=== PATIENT | female | born 1990 | race Caucasian/White ===

== ENCOUNTER 2016-08-23 14:05 | Emergency (ER) | payer OTHER ==
--- NOTE | 2016-08-23 14:42 | ED CLINICAL REPORT ---
Clinical Report - Physicians/Mid Levels [facility] [address] [place] [address] 08/23/2016 14:12 Patient: BJ GARSIA Time Seen: 14:20; initial patient contact, initial documentation, patient care assumed. Arrived- By private vehicle. Historian- patient. HISTORY OF PRESENT ILLNESS Chief Complaint: FALL. Location of injuries- abdomen and lower back. The injury occurred today. Occurred at a relative's house. Fell down 5 stairs while walking. The patient complains of mild pain. No blow to the head, neck pain, loss of consciousness or seizure. Not dazed. (, approx 20 weeks , going down the stairs, missed a step, slipped fell backwards onto butt, back and elbows and slid the rest of the way down the stairs, low back and abd started to hurt, no vag dc/bleeding). REVIEW OF SYSTEMS No numbness, chest pain, difficulty breathing, laceration or urinary problems. She has had abdominal pain but no pain on weight bearing. All systems otherwise negative, except as recorded above. PAST HISTORY Negative. SOCIAL HISTORY Never smoker. No alcohol use or drug use. Is an out of state resident. Visiting locally. FAMILY HISTORY No significant family medical history. ADDITIONAL NOTES The nursing notes have been reviewed with agreement regarding the chief complaint, HPI, ROS, PMH and patient medications and allergies. PHYSICAL EXAM Vital Signs: 08/23/2016 14:17 BP: 127/85. HR: 93. RR: 18. O2 saturation: 97%. Temp: 97.6 F. Pain level now: 7/10. Have been reviewed as normal and appear to be correct. Appearance: Alert. Oriented X3. No acute distress. Head: Head non-tender. No swelling of head. Eyes: Pupils equal, round and reactive to light. EOM intact. ENT: No dental injury. Pharynx normal. Neck: Painless ROM. Non-tender. CVS: Heart sounds normal. Pulses normal. Respiratory: Breath sounds normal. Chest nontender. Abdomen: No visible injury. Soft and nontender. Nontender gravid uterus palpable to umbilicus (fht per nurse 154 and strong). Size consistent with dates. Normal heart tones. Back: Back tenderness present. Mild soft-tissue tenderness in the right and left costovertebral angle. ROM normal. : Normal genitalia. Vaginal exam normal. (speculum and bimanual exam, normal, no tenderness, no bleeding, no dc, normal size fundus per dates). Skin: Skin intact. Skin warm and dry. Normal skin color. Normal skin turgor. Extremities: Abnormal inspection. Extremities not atraumatic. Left elbow: small abrasion located in the area of the olecranon. Neurovascular intact distally. No erythema, tenderness, swelling, laceration or ecchymosis. No puncture wound, foreign body or deformity. No joint effusion or limitation in ROM. Pelvis stable. No lower extremity edema. Neuro: Oriented X 3. No motor deficit. No sensory deficit. PROGRESS AND PROCEDURES Patient counseled in person regarding the patient's stable condition, test results and diagnosis. Differential Diagnosis: Other possible considerations: fall, demise, miscarriage, fx, head injury, abd injury, contusions, lac, abrasions. Above considerations are based on history, physical exam and reassessment. Differential diagnosis was discussed with patient. Disposition: Discharged home in good and unchanged condition. Condition: good and stable. CLINICAL IMPRESSION Single superficial abrasion to the left elbow. Myofascial pain syndrome Fall on same level by slipping. INSTRUCTIONS Warnings: GENERAL WARNINGS: Return or contact your physician immediately if your condition worsens or changes unexpectedly, if not improving as expected, or if other problems arise. SPECIFICALLY, return if you develop incontinence of urine (loss of bladder control). vaginal bleeding, abdominal pain worsens, chest pain, trouble breathing. Follow-up: Follow up with your doctor in about three days as needed. Call for an appointment. Summary of care provided to patient. Understanding of the discharge instructions verbalized by patient. (Electronically signed by Noni Bull A.R.N.P. 08/23/2016 14:58)
--- NOTE | 2016-08-23 14:42 | ED NURSING NOTES ---
Clinical Report - Nurses [facility] [address] [place] [address] 08/23/2016 14:12 Patient: BJ GARSIA TRIAGE Triage time 14:10 Aug 23 2016. Acuity: LEVEL 4. Chief Complaint: ABDOMINAL PAIN and (Pain low back, bilat hips and Lower abd pain). SEPSIS SCREEN: Sepsis Screen. Negative (no infection suspected/documented). TELLO COMA SCORE: Tello Coma Scale: 15- eyes open spontaneously (4); best verbal response- oriented x 4 (5); best motor response- obeys commands (6). --14:18 Iveth Bean R.N. 14:17 08/23/16. BP: 127/85 (regular adult cuff) taken on the right arm, while lying. HR: 93. RR: 18. O2 saturation: 97% on room air. Temp: 97.6 F (oral). Pain level now: 11/21. --14:18 Iveth Bean R.N. Weight: 68.9 kg stated. Height/Length: 71 inches Per Patient. BMI: 21.2. --14:10 Iveth Bean R.N. Medications TraMADol HCl ER Oral. Tramadol HCL Oral (Tablet 50 mg) 4 tablet, morning and night. --14:13 Iveth Bean R.N. Aspirin Low Dose Oral (Tablet Chewable 81 mg) 1 tablet, daily. --14:14 Iveth Bean R.N. Tylenol Oral (Tablet 325 mg) 1 tablet, PRN. --14:14 Iveth Bean R.N. Allergies Penicillins. --14:14 Iveth Bean R.N. Arithromycin. --14:15 Iveth Bean R.N. History Arrived by private vehicle. Historian: patient. ( Patient is 20 weeks and fell down 5 steps on low back, she is now having low back, bilat hips and lower abd pain. She says she does feel baby moving). She has had abdominal pain (lower abd). ( 154 BPM FHT). 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 PAST MEDICAL HX: Negative. Currently . In 2nd trimester. SOCIAL HX: Never smoker. No alcohol use or drug use. No recent travel. No infectious disease exposure. No known contact with a sick individual. ABUSE ASSESSMENT: No report of abuse. --14:18 Iveth Bean R.N. Interventions ID band on patient. To treatment room. --14:18 Iveth Bean R.N. PHYSICAL ASSESSMENT Ambulatory to room. GENERAL / NEURO / PSYCH: Alert. Oriented X 4. HEENT: Mucous membranes are pink. RESPIRATORY: Respirations not labored. Breath sounds within normal limits. CVS: Normal sinus rhythm noted. Capillary refill less than 2 seconds. GI / : Abdomen soft and nontender. Bowel sounds within normal limits. ( normal FHT 154 BPM and regular). SKIN: Skin is warm. --14:19 Iveth Bean R.N. NURSING PROGRESS NOTES The plan of care for this patient has been created. Monitoring of patient in place. Patient gowned. Head of bed elevated. Reassurance given. Two patient identifiers checked. Call light placed in reach. Side rails up x 2. Bed placed in lowest position. Brakes of bed on. Patient ready for evaluation- chart flagged and ED physician notified. --14:19 Iveth Bean R.N. DISPOSITION / DISCHARGE Condition at departure: improved. No learning barriers present. Activity restrictions (rest) reviewed. Patient verbalized understanding. Written instructions provided in [place]. The patient was discharged by the nurse practitioner. She was discharged home and accompanied by family. She left the Emergency Department ambulatory and via private vehicle. Family member driving. --14:57 Iveth Bean R.N. 14:56 08/23/16. BP: 114/79 (regular adult cuff) taken on the right arm, while sitting. HR: 90. RR: 16 (regular). O2 saturation: 95% on room air. Temp: 98.3 F (oral). Pain level now: 09/21. --14:57 Iveth Bean R.N. Departure time: 14:57 Aug 23 2016. --14:57 Iveth Bean R.N. Locked/Released at 08/23/2016 14:59 by Iveth Bean R.N.
--- NOTE | 2016-08-23 14:42 | ED ORDER SUMMARY ---
..... Patient: BJ GARSIA OrderSheet [facility] VisitID: [id number] [address] [place] [address] 25y, F Registration Date/Time: 08/23/2016 ORDER SHEET Weight: 68.9 kg (stated) Allergies: Penicillins, Arithromycin GENERAL ORDERS: Heart Tones (14:24 08/23/2016 JSanders R.N. per protocol) (14:24 JSanders R.N.) Pelvic Exam Setup (14:24 08/23/2016 HBivens A.R.N.P.) (14:33 JSanders R.N.) MEDICATION ORDERS: IV FLUIDS: ORDER SHEET NOTES: [Electronically signed by Noni BullR.N.P. (14:58 08/23/2016)] [Electronically signed by Iveth Bean R.N. (14:58 08/23/2016)] [Electronically locked/signed by Iveth Bean R.N. (14:58 08/23/2016)]
--- NOTE | 2016-08-23 14:42 | ED NURSING NOTES ---
Clinical Report - Nurses [facility] [address] [place] [address] 08/23/2016 14:12 Patient: BJ GARSIA TRIAGE Triage time 14:10 Aug 23 2016. Acuity: LEVEL 4. Chief Complaint: ABDOMINAL PAIN and (Pain low back, bilat hips and Lower abd pain). SEPSIS SCREEN: Sepsis Screen. Negative (no infection suspected/documented). TELLO COMA SCORE: Tello Coma Scale: 15- eyes open spontaneously (4); best verbal response- oriented x 4 (5); best motor response- obeys commands (6). --14:18 Iveth Bean R.N. 14:17 08/23/16. BP: 127/85 (regular adult cuff) taken on the right arm, while lying. HR: 93. RR: 18. O2 saturation: 97% on room air. Temp: 97.6 F (oral). Pain level now: 11/21. --14:18 Iveth Bean R.N. Weight: 68.9 kg stated. Height/Length: 71 inches Per Patient. BMI: 21.2. --14:10 Iveth Bean R.N. Medications TraMADol HCl ER Oral. Tramadol HCL Oral (Tablet 50 mg) 4 tablet, morning and night. --14:13 Iveth Bean R.N. Aspirin Low Dose Oral (Tablet Chewable 81 mg) 1 tablet, daily. --14:14 Iveth Bean R.N. Tylenol Oral (Tablet 325 mg) 1 tablet, PRN. --14:14 Iveth Bean R.N. Allergies Penicillins. --14:14 Iveth Bean R.N. Arithromycin. --14:15 Iveth Bean R.N. History Arrived by private vehicle. Historian: patient. ( Patient is 20 weeks and fell down 5 steps on low back, she is now having low back, bilat hips and lower abd pain. She says she does feel baby moving). She has had abdominal pain (lower abd). ( 154 BPM FHT). 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 PAST MEDICAL HX: Negative. Currently . In 2nd trimester. SOCIAL HX: Never smoker. No alcohol use or drug use. No recent travel. No infectious disease exposure. No known contact with a sick individual. ABUSE ASSESSMENT: No report of abuse. --14:18 Iveth Bean R.N. Interventions ID band on patient. To treatment room. --14:18 Iveth Bean R.N. PHYSICAL ASSESSMENT Ambulatory to room. GENERAL / NEURO / PSYCH: Alert. Oriented X 4. HEENT: Mucous membranes are pink. RESPIRATORY: Respirations not labored. Breath sounds within normal limits. CVS: Normal sinus rhythm noted. Capillary refill less than 2 seconds. GI / : Abdomen soft and nontender. Bowel sounds within normal limits. ( normal FHT 154 BPM and regular). SKIN: Skin is warm. --14:19 Iveth Bean R.N. NURSING PROGRESS NOTES The plan of care for this patient has been created. Monitoring of patient in place. Patient gowned. Head of bed elevated. Reassurance given. Two patient identifiers checked. Call light placed in reach. Side rails up x 2. Bed placed in lowest position. Brakes of bed on. Patient ready for evaluation- chart flagged and ED physician notified. --14:19 Iveth Bean R.N. DISPOSITION / DISCHARGE Condition at departure: improved. No learning barriers present. Activity restrictions (rest) reviewed. Patient verbalized understanding. Written instructions provided in [place]ian. The patient was discharged by the nurse practitioner. She was discharged home and accompanied by family. She left the Emergency Department ambulatory and via private vehicle. Family member driving. --14:57 Iveth Bean R.N. 14:56 08/23/16. BP: 114/79 (regular adult cuff) taken on the right arm, while sitting. HR: 90. RR: 16 (regular). O2 saturation: 95% on room air. Temp: 98.3 F (oral). Pain level now: 09/21. --14:57 Iveth Bean R.N. Departure time: 14:57 Aug 23 2016. --14:57 Iveth Bean R.N. Locked/Released at 08/23/2016 14:59 by Iveth Bean R.N.
--- NOTE | 2016-08-23 14:42 | ED ORDER SUMMARY ---
..... Patient: BJ GARSIA OrderSheet [facility] VisitID: [id number] [address] [place] [address] 25y, F Registration Date/Time: 08/23/2016 ORDER SHEET Weight: 68.9 kg (stated) Allergies: Penicillins, Arithromycin GENERAL ORDERS: Heart Tones (14:24 08/23/2016 JSanders R.N. per protocol) (14:24 JSanders R.N.) Pelvic Exam Setup (14:24 08/23/2016 HBivens A.R.N.P.) (14:33 JSanders R.N.) MEDICATION ORDERS: IV FLUIDS: ORDER SHEET NOTES: [Electronically signed by Noni BullR.N.P. (14:58 08/23/2016)] [Electronically signed by Iveth Bean R.N. (14:58 08/23/2016)] [Electronically locked/signed by Iveth Bean R.N. (14:58 08/23/2016)]
--- NOTE | 2016-08-23 14:59 | ED DISCHARGE INSTRUCTIONS ---
Patient: BJ GARSIA General Instructions [facility] VisitID: [id number] [place] [address] 25y, F Registration Date/Time: 08/23/2016 Single superficial abrasion to the left elbow. Myofascial pain syndrome Fall on same level by slipping. INSTRUCTIONS Warnings: GENERAL WARNINGS: Return or contact your physician immediately if your condition worsens or changes unexpectedly, if not improving as expected, or if other problems arise. SPECIFICALLY, return if you develop incontinence of urine (loss of bladder control). vaginal bleeding, abdominal pain worsens, chest pain, trouble breathing. Follow-up: Follow up with your doctor in about three days as needed. Call for an appointment. Summary of care provided to patient. Understanding of the discharge instructions verbalized by patient. ADDITIONAL INFORMATION Mechanical Fall You have had a fall today. It appears that the cause is mechanical. That means that you slipped, tripped or lost your balance. If your fall had been due to fainting or a seizure, further tests would be required. Home Care: Rest today and resume your normal activities when you are feeling back to normal. If you were injured during the fall, follow the advice from your doctor regarding care of your injury. You may use acetaminophen (Tylenol) or ibuprofen (Motrin, Advil) to control pain, unless another pain medicine was prescribed. [NOTE: If you have chronic liver or kidney disease or ever had a stomach ulcer or GI bleeding, talk with your doctor before using these medicines.] Fall Prevention: Was there anything that caused your fall that can be fixed, removed, or replaced? Make your home safe by keeping walkways clear of objects you may trip over. Use non-slip pads under rugs. Do not walk in poorly lit areas. Do not stand on chairs or wobbly ladders. Use caution when reaching overhead or looking upward. This position can cause a loss of balance. Be sure your shoes fit properly, have non-slip bottoms and are in good condition. Be cautious when going up and down curbs, and walking on uneven sidewalks. If your balance is poor, consider using a cane or walker. Stay as active as you can. Balance, flexibility, strength, and endurance all come from exercise. They all play a role in preventing falls. Follow Up with your doctor or as advised by our staff. Get Prompt Medical Attention if any of the following occur: Repeated mechanical falls, or unexplained falls Dizziness, fainting or seizure Severe headache Chest pain or shortness of breath Palpitations (very rapid or very slow or irregular heartbeat) Blood in vomit, stools (black or red color) Weakness of an arm or leg or one side of the face Difficulty with speech or vision Abrasions Abrasions are skin scrapes. Their treatment depends on how large and deep the abrasion is. Home Care: If you were given a bandage, change it once a day. If your bandage sticks to the wound, soak it in warm water until it loosens. Wash the area with soap and water to remove all the cream/ointment. You may do this in a sink, under a tub faucet or shower. Rinse off the soap and pat dry with a clean towel. Reapply cream/ointment according to your doctor's instructions. This will prevent infection and help prevent the bandage from sticking. Cover the wound with a fresh non-stick bandage (Telfa). Repeat steps 1 to 4 daily, or as directed by your doctor. If the bandage becomes wet or dirty, change it as soon as possible. You may use acetaminophen (Tylenol) or ibuprofen (Motrin, Advil) to control pain, unless another pain medicine was prescribed. [ NOTE : If you have chronic liver or kidney disease or ever had a stomach ulcer or GI bleeding, talk with your doctor before using these medicines.] Do not use ibuprofen in children under six months of age. Follow Up with your physician or this facility as directed by our staff. Most skin wounds heal within ten days. However, an infection may occur despite proper treatment. Therefore, look for the early signs of infection listed below. Get Prompt Medical Attention if any of the following occur: Increasing pain in the wound Increasing redness or swelling Pus coming from the wound Fever of 100.4F (38C) or higher, or as directed by your healthcare provider Myofascial Pain Syndrome: Fibrositis Your pain is caused by a state of chronic muscle tension. This condition is called by various names: myofascial pain, fibrositis and trigger point pain. This can also be due to mechanical stress (such as working at a computer terminal for long periods; or work that requires repetitive motions of the arms or hands) or emotional stress (such as problems on the job or in your personal life). Sometimes there is no obvious cause. The pain can occur in the area of the muscle spasm or at a site distant to it. For example, spasm of a neck muscle can cause headache. Spasm of the muscle near the shoulder blade can cause pain shooting down the arm. Home Care: Try to identify the factors that may be causing your problem and change them: If you feel thatemotional stressis a cause of your pain, learn methods to deal more effectively with the stress in your life. These may include regular exercise, muscle relaxation techniques, meditation or simply taking time out for yourself. Consult your doctor or go to a local bookstore and review the many books and tapes available on the subject of stress reduction. If you feel that physical stress is a cause for your pain, try to modify any poor work habits. You may use acetaminophen (Tylenol) or ibuprofen (Motrin, Advil) to control pain, unless another medicine was prescribed. [NOTE: If you have chronic liver or kidney disease or ever had a stomach ulcer or GI bleeding, talk with your doctor before using these medicines.] The use of heat to the muscle (hot compress or heating pad) will be helpful to reduce muscle spasm. Some persons get relief with ice packs. Apply an ice pack (crushed or cubed ice in a plastic bag, wrapped in a towel) for 20 minutes at a time as needed. Use the method that feels best to you. Massaging the trigger point and stretching out the muscleare an important parts of prevention and treatment. Trigger point massage can be done by first applying heat to the area to warm and prepare the muscle. Have someone apply steady thumb pressure directly on the knot in the muscle (the most tender point) for 30 seconds. Release the pressure, then massage the surrounding muscle. Repeat the process, applying more pressure to the trigger point each time. Do this up to the limit of pain. With each treatment, the trigger point should become less tender and the pain should decrease. You can apply local pressure to trigger points in the back by lying on the floor with a tennis ball under the trigger point. Follow Up with your doctor as advised or if not improving within the next week. It may be necessary for you to receive physical therapy if you do not respond to home treatment alone. Get Prompt Medical Attention if any of the following occur: If your trigger point is in the chest muscles, observe for pain that becomes more severe, lasts longer, or spreads into your shoulder/arm, neck or back; you develop trouble breathing, sweating, nausea or vomiting in association with chest pain If you develop weakness or numbness in an extremity If your pain worsens, regardless of its location You have been given the following additional information: Fall, Mechanical Abrasion Myofascial Pain Syndrome (Electronically signed by Noni Bull A.R.N.P. 08/23/2016 14:58)
--- NOTE | 2016-08-23 14:59 | ED MAR SUMMARY ---
..... Medication Administration Record [facility] [address] [place], [place] [id number] Patient: BJ GARSIA Visit ID: [id number] 25y, F Weight: 68.9 kg Height/Length: 71 in BMI: 21.2 ALLERGIES: Arithromycin, Penicillins
--- NOTE | 2016-08-23 14:59 | ED MED RECONCILIATION SUMMARY ---
Patient: BJ GARSIA Medication Reconciliation Report [facility] VisitID: [id number] [address] [place] [address] 25y, F Registration Date/Time: 08/23/2016 Weight: 68.9 kg Height/Length: 71 in. BMI: 21.2 ALLERGIES: Arithromycin, Penicillins The patient's Home Medications are listed below: THE FOLLOWING MEDICATIONS NEED TO BE RECONCILED: Aspirin Low Dose Oral (81 mg) 1 tablet, daily TraMADol HCl ER Oral Tramadol HCL Oral (50 mg) 4 tablet, morning and night Tylenol Oral (325 mg) 1 tablet, PRN The source(s) of the original Home Medication information: Not obtained. The following Medications were given to the patient in the Emergency Department: None. The following Medications were prescribed to the patient: None.
--- NOTE | 2016-08-23 14:59 | ED MED RECONCILIATION SUMMARY ---
Patient: BJ GARSIA Medication Reconciliation Report [facility] VisitID: [id number] [address] [place] [address] 25y, F Registration Date/Time: 08/23/2016 Weight: 68.9 kg Height/Length: 71 in. BMI: 21.2 ALLERGIES: Arithromycin, Penicillins The patient's Home Medications are listed below: THE FOLLOWING MEDICATIONS NEED TO BE RECONCILED: Aspirin Low Dose Oral (81 mg) 1 tablet, daily TraMADol HCl ER Oral Tramadol HCL Oral (50 mg) 4 tablet, morning and night Tylenol Oral (325 mg) 1 tablet, PRN The source(s) of the original Home Medication information: Not obtained. The following Medications were given to the patient in the Emergency Department: None. The following Medications were prescribed to the patient: None.
--- NOTE | 2016-08-23 14:59 | ED MAR SUMMARY ---
..... Medication Administration Record [facility] [address] [place], [place] [id number] Patient: BJ GARSIA Visit ID: [id number] 25y, F Weight: 68.9 kg Height/Length: 71 in BMI: 21.2 ALLERGIES: Arithromycin, Penicillins
== END 2016-08-23 14:57 | disposition home or self-care (01) ==
LOC: ED SRH 14:05
DX: O9A.212 Injury, poisoning and certain other consequences of external causes complicating pregnancy, second trimester (principal); S50.312A Abrasion of left elbow, initial encounter; W10.9XXA Fall (on) (from) unspecified stairs and steps, initial encounter; Y93.01 Activity, walking, marching and hiking; Y92.019 Unspecified place in single-family (private) house as the place of occurrence of the external cause; Y99.8 Other external cause status; O99.89 Other specified diseases and conditions complicating pregnancy, childbirth and the puerperium; M79.1 Myalgia; Z3A.20 20 weeks gestation of pregnancy; Z79.82 Long term (current) use of aspirin